=== PATIENT | female | born 1960 | race Caucasian/White ===

== ENCOUNTER → 2016-09-06 | Outpatient (CLI) | payer OTHER ==
--- NOTE | 2016-09-06 12:13 | ECHOF ---
Referral Reason:i31.3 Pericardial effusion MEASUREMENTS -------- HEIGHT: 165.1 cm WEIGHT: 72.6 kg BP: IVSd: 1.1 cm (0.6 - 1.1) LVIDd: 3.9 cm (3.9 - 5.3) LVPWd: 1.1 cm (0.6 - 1.1) IVSs: 1.3 cm LVIDs: 3.0 cm LVPWs: 1.2 cm LA Diam: 2.6 cm (2.7 - 3.8) Ao Diam: 2.7 cm (2.0 - 3.7) AV Cusp: 1.6 cm (1.5 - 2.6) LA Diam: 2.7 cm (2.7 - 3.8) MV EXCURSION: 19.436 mm (> 18.000) MV EF SLOPE: 82 mm/s (70 - 150) EPSS: 0.3 cm MV E Kane: 0.57 m/s MV DecT: 252 ms MV A Kane: 1.03 m/s MV E/A Ratio: 0.55 RAP: 5.00 mmHg RVSP: 11.45 mmHg FINDINGS -------- Sinus rhythm. This was a technically good study. Left ventricular wall thickness is normal. Overall left ventricular systolic function is normal with, an EF between 55 - 60 %. The right ventricle is normal in size. The left atrial size is normal. The right atrial size is normal. The aortic valve is trileaflet, and appears structurally normal. No aortic stenosis or regurgitation. Mild mitral regurgitation is present. Mild tricuspid regurgitation present. There is no evidence of pulmonary hypertension. The right ventricular systolic pressure, as measured by Doppler, is 11.45mmHg. There is no pulmonic regurgitation present. The aortic root size is normal. There is a small, generalized pericardial effusion present. CONCLUSIONS -------- 1. Left ventricular wall thickness is normal. 2. Overall left ventricular systolic function is normal with, an EF between 55 - 60 %. 3. The aortic valve is trileaflet, and appears structurally normal. No aortic stenosis or regurgitation. 4. Mild mitral regurgitation is present. 5. Mild tricuspid regurgitation present. 6. There is no evidence of pulmonary hypertension. 7. The right ventricular systolic pressure, as measured by Doppler, is 11.45mmHg. 8. The aortic root size is normal. 9. There is a small, generalized pericardial effusion present. CAR HOP: Emilee Jeffers RDCS
== END | disposition home or self-care (01) ==
LOC: RADECHMAIN 10:40
PROVIDERS: ATTEND Family Medicine
DX: I31.3 Pericardial effusion (noninflammatory) (principal); I08.1 Rheumatic disorders of both mitral and tricuspid valves
CPT/HCPCS: 93306

== ENCOUNTER → 2016-12-04 | Outpatient (CLI) | payer OTHER ==
--- NOTE | 2016-12-06 11:34 | MM ---
Reason for exam: screening (asymptomatic). Last mammogram was performed 4 years ago. Physical Findings: A clinical breast exam by your physician is recommended on an annual basis and results should be correlated with mammographic findings. MG 3D Screening Mammo W/Cad Bilateral CC and MLO view(s) were taken. Prior study comparison: November 19, 2012, mammogram, performed at [facility]. December 26, 2010, mammogram, performed at [facility]. The breast tissue is almost entirely fat. Probable lymph node left axillary tail. No significant changes when compared with prior studies. ASSESSMENT: Benign, BI-RAD 2 RECOMMENDATION: Routine screening mammogram of both breasts in 1 year.
== END | disposition home or self-care (01) ==
LOC: RADMAMWWP 13:58
PROVIDERS: ATTEND Family Medicine
DX: Z12.31 Encounter for screening mammogram for malignant neoplasm of breast (principal)
CPT/HCPCS: 77063; G0202

== ENCOUNTER → 2019-01-20 | Outpatient (CLI) | payer OTHER ==
--- NOTE | 2019-01-20 12:45 | BD ---
EXAMINATION TYPE: Axial Bone Density DATE OF EXAM: 01/20/2019 COMPARISON: NONE CLINICAL HISTORY: 58 YR OLD FEMALE....ICD-10 CODE: N95.1 POST MENOPAUSAL, M89.9 BONE DISORDER Height: 63.5 Weight: 165 FRAX RISK QUESTIONS: Family History (Parent hip fracture): YES Glucocorticoids (More than 3mos): YES (Ex: prednisone, prednisolone, methylprednisolone, dexamethasone, and hydrocortisone). Current Tobacco Use: YES RISK FACTORS HISTORY OF: Family History of Osteoporosis: YES, HER MOTHER, WITH HIP FRACTURE Active: YES Diet low in dairy products/other sources of calcium: YES, LACTOSE INTOLERANT Postmenopausal woman: YES AT AGE 47 MEDICATIONS: Prednisone or other steroids: STEROIDAL INJECTIONS IN BACK, AND PREDNISONE ON AND OFF FOR SYMPTOMS Additional Medications: BP MEDS, PROTONIX, STATIN FOR CHOLESTEROL, VIT D SUPPLEMENT WEEKLY, PAIN MED FOR BACK , Additional History: HYPERTENSION, CHOLESTEROL, EXAM MEASUREMENTS: Bone mineral densitometry was performed using the [employer] System. Bone mineral density as measured about the Lumbar spine is: ----- L1-L4(G/cm2): 1.266 T Score Values are as follows: ----- L1: -0.2 ----- L2: -0.4 ----- L3: 1.1 ----- L4: 1.9 ----- L1-L4: 0.7 Bone mineral density FIRST DEXA SCAN.....BASELINE STUDY Bone mineral density about the R hip (g/cm2): 0.990 Bone mineral density about the L hip (g/cm2): 0.983 T Score values are as follows: -----R Neck: -0.8 -----L Neck: -1.0 -----R Total: -0.1 -----L Total: -0.2 Bone mineral density FIRST DEXA SCAN.....BASELINE STUDY FRAX%s: THERE IS A 19.1% CHANCE FOR A MAJOR OSTEOPOROTIC FX AND A 1.0% FOR HIP....PROBABILITY OF F X IN 10 YRS TIME IMPRESSION: Osteopenia (T Score between -2.5 and -1). There is slightly increased risk of fracture and the patient may be considered for treatment. Re-Screen 2-5 years. NOTE: T-SCORE=SD OF THE YOUNG ADULT MEAN.
--- NOTE | 2019-01-21 08:43 | MM ---
Reason for exam: screening (asymptomatic). Last mammogram was performed 2 years and 2 months ago. Physical Findings: A clinical breast exam by your physician is recommended on an annual basis and results should be correlated with mammographic findings. MG 3D Screening Mammo W/Cad Bilateral CC and MLO view(s) were taken. Prior study comparison: December 04, 2016, bilateral MG 3d screening mammo w/cad. November 19, 2012, mammogram, performed at [facility]. There are scattered fibroglandular densities. No suspicious abnormality. No significant changes when compared with prior studies. ASSESSMENT: Negative, BI-RAD 1 RECOMMENDATION: Routine screening mammogram of both breasts in 1 year.
== END | disposition home or self-care (01) ==
LOC: RADMAMWWP 10:11
PROVIDERS: ATTEND Family Medicine
DX: Z12.31 Encounter for screening mammogram for malignant neoplasm of breast (principal); M85.80 Other specified disorders of bone density and structure, unspecified site; N95.1 Menopausal and female climacteric states
CPT/HCPCS: 77063; 77067; 77080

== ENCOUNTER → 2020-05-19 | Outpatient (CLI) | payer OTHER ==
--- NOTE | 2020-05-19 21:55 | CT ---
EXAMINATION TYPE: CT lumbar spine wo con DATE OF EXAM: 05/19/2020 COMPARISON: None HISTORY: Spondylosis lumbar region. CT DLP: 967 mGycm CONTRAST: None TECHNIQUE: CT of the lumbar spine is performed on a spiral scan at 3 mm thick sections. Reconstructed images are performed in the coronal and sagittal planes. FINDINGS: T12-L1: No focal disc herniation or significant disc bulge is evident. No spinal canal stenosis or neural foraminal stenosis is present. L1-L2: Mild disc bulge is present with anterior thecal sac contact. No AP spinal canal stenosis is pr esent. Neural foramen are patent. Mild facet degenerative changes present. L2-L3: Posterior disc space narrowing is present. There is a central disc herniation with moderate an terior thecal sac compression no AP spinal canal stenosis is present. Mild additional disc bulging is causing some foraminal narrowing additional evaluation with MRI is recommended. L3-L4: There is a minimal grade 1 spondylolisthesis of L3 anteriorly on L4. Disc uncovering has moder ate anterior thecal sac compression. Facet hypertrophy and ligamentum flavum laxity has posterior lat eral thecal sac compression. These are contributing to spinal canal narrowing. Moderate bilateral for aminal narrowing is present. Note is made of some Schmorl's node formation or mild superior endplate disc changes of L3. L4-L5: There is loss of disc height is level. Residual disc material has anterior thecal sac compress ion with moderate impression. Facet hypertrophy is mild ligamentum flavum laxity. Moderate bilateral foraminal stenosis is present. L5-S1: There is loss of disc height with sclerosis along the L5-S1 endplates. An S1 spur has moderate anterior thecal sac compression in the central and right paracentral regions. There is moderate righ t and severe left foraminal stenosis. No AP spinal canal stenosis is present. IMPRESSION: 1. Loss of disc height L4-5 L5-S1. 2. S1 endplate spurring with moderate central right paracentral thecal sac compression without stenos is. 3. Severe left and moderate right foraminal stenosis L5-S1. Moderate bilateral foraminal stenosis is present L4-5 and L3-4. 4. Grade 1 spondylolisthesis of L3 anterior on L4. 5. Spinal canal narrowing L3-4 secondary to broad-based disc bulging and ligamentum flavum laxity. 6. Central disc herniation suspected at L2-L3 with moderate thecal sac compression. Additional closer evaluation with MRI is recommended to reevaluate this level.
== END | disposition home or self-care (01) ==
LOC: RADCTMAIN 10:38
PROVIDERS: ATTEND Physical Medicine & Rehabilitation
DX: M48.061 Spinal stenosis, lumbar region without neurogenic claudication (principal); M48.07 Spinal stenosis, lumbosacral region; M51.26 Other intervertebral disc displacement, lumbar region; M43.16 Spondylolisthesis, lumbar region; M54.16 Radiculopathy, lumbar region
CPT/HCPCS: 72131